=== PATIENT | female | born 1965 | race Caucasian/White ===

== ENCOUNTER 2023-11-05 12:38 | Inpatient (IN) | payer OTHER, SELFPAY ==
[2023-11-05] VITALS (7 sets, daily range): BP systolic 139–159; BP diastolic 63–98; PULSE 62–81; RESP 16–18; TEMP 36.6–37.3; O2SAT 95–100; BMI 24.0; BMI 23.6
--- NOTE | ~2023-11-05 | XR_ITS ---
EXAMINATION: XR HAND, RIGHT CLINICAL INFORMATION: Pain and swelling and redness. History of trauma. COMPARISON: None available. TECHNIQUE: PA, lateral, and oblique views of the right hand. FINDINGS: Alignment is anatomic. No displaced fracture. Joint spaces are maintained. Tiny periarticular calcifications are seen. No erosions. XR/XR hand RT min 3V IMPRESSION: No acute abnormality.
--- NOTE | 2023-11-05 12:45 | ED.EXTPRO ---
HPI - Extremity Problem General Chief complaint: Extremity Injury, Upper Stated complaint: R thumb pain red line traveling up arm Time Seen by Provider: 11/05/23 13:19 Source: patient Mode of arrival: ambulatory Limitations: no limitations History of Present Illness HPI Narrative: 58-year-old female with hypothyroidism presents to ED for red streak going up from l left arm going up to left bicep began yesterday. Patient had nail work done on her left thumb and has pain in the area and last night the redness started from thumb all way up to the arm. Patient denies any feel or chills. Patient denies any chest pain or recent trauma. Related Data Home Medications ?Medication ?Instructions ?Recorded ?Confirmed levothyroxine 75 mcg tablet 75 mcg PO DAILY 11/05/23 11/05/23 [id number] 1 tab PO DAILY 11/05/23 11/05/23 tablet (Multivitamin 50 Plus tablet) Allergies Allergy/AdvReac Type Severity Reaction Status Date / Time vancomycin Allergy Itching Verified 11/05/23 15:44 Review of Systems Review of Systems: Left arm redstreak Yes all other systems are reviewed and are negative [facility] Past Medical History Medical History (Updated 11/05/23 @ 23:07 by LILLY Bianchi) Hypothyroid Social History Social History Household Members: Family Housing: House Do you presently have visiting nurse or other home services: No Alcohol intake: current Alcohol intake frequency: 3 or more drinks per day Alcohol type: wine Patient Tobacco Use Status: Never used Tobacco Smoked in Last 30 Days: No Use of substances other than those prescribed or required for medical reasons: No Have you been hit, kicked, punched, or otherwise hurt by someone within the past year? If so, by whom?: No Do you feel safe in your current relationship?: Yes Is there a partner from a previous relationship who is making you feel unsafe now?: No Are you made to feel afraid or neglected: No Advance Directives: No Advance Directives Information Provided: Yes Do you have a plan to hurt others: No Plan Recently lost weight without trying: No How much weight loss: Not applicable Eating poorly because of decreased appetite: No Nutrition screen score: 0 Nutrition Risks: No Nutritional Risk Patient : No : No Poor oral hygiene: No Physical Exam Vital Signs: Vital Signs: Last Vital Signs Temp 97.8 F 11/05/23 20:42 Pulse 78 11/05/23 20:42 Resp 18 11/05/23 20:42 BP 139/92 H 11/05/23 20:42 Pulse Ox 95 11/05/23 20:42 O2 Del Method Room Air 11/05/23 20:42 BMI result Body Mass Index 24.0 Const: General: cooperative, healthy appearing, comfortable, no acute distress, well developed, alert, awake and Physically active Orientation/consciousness: oriented to person, oriented to place, oriented to time and patient oriented x3 HEENT: Head: Yes normal to inspection, Yes No palpable skull fracture present, Yes normocephalic, Yes atraumatic and No abrasion Eyes: General: appearance normal, both eyes and all related structures Neck: Neck: Yes normal visual inspection, Yes full ROM, Yes no lymphadenopathy, Yes no meningeal signs, No anterior neck swelling and No tender Chest: Chest palpation & inspection: normal inspection of the chest and normal palpation of entire chest wall Resp: Effort & Inspection: normal respiratory effort and able to speak in complete sentences Auscultation: clear to auscultation bilaterally Cardio: Jugular venous distension: no JVD Heart sounds: S1 normal heart sound present and S2 normal heart sound present GI: Inspection: Yes normal to inspection Palpation (GI): Soft to palpation, not firm, nontender, no guarding and not rigid : General: Yes no CVA tenderness Back/Spine/Pelvis: Back: no CVA tenderness and No back tenderness Skin: Other: Right lymphangitis General skin exam: no rashes or lesions noted, elasticity normal and turgor normal Neuro: General: oriented to person, oriented to place, oriented to time, patient oriented x3, gait normal, tone normal, moves all extremities, Normal light touch and pain sensation, no meningeal signs, no focal motor deficits, CN's II-XI intact bilaterally and normal sensation to monofilament Extrem: Other: vascular motor/neuro exam intact Right lower extremity. Near right nail cuticle erythema maybe slight early paronychia. Patient has fake nail acrylic, Psych: Appearance: grossly normal, well kempt and not disheveled Course Course Course Narrative: This is a Rapid Medical Examination (RME) performed by Ana Knott PA-C in triage. Full HPI, ROS, assessment and treatment plan per primary provider in the Main ED. 58 yo female presenting with painful, swollen right thumb after minor trauma 1.5 weeks ago and woke up today with red line traveling up her arm. No fever or chills. Not diabetic. Pain w/ ROM of the thumb. Exam w/ acrylic nails but visible base w/ probable paronychia and erythematous line to the middle upper arm c/w lymphangitis. Plan: lab workup, paronychia drainage Medications Administered Generic Name Dose Route Start Last Admin Trade Name Freq PRN Reason Stop Dose Admin Cefazolin Sodium 1 gm/ Sodium 50 mls @ 100 mls/hr 11/05/23 17:00 11/05/23 17:33 Chloride IV Infused Q8H RAJWINDER Infusion Sodium Chloride 3 ml 11/06/23 00:00 11/05/23 21:21 0.9 % Sodium Chloride Flush 3 Ml Syringe IVFLUSH 3 ml QSHIFT RAJWINDER Administration Discontinued Medications Generic Name Dose Route Start Last Admin Trade Name Freq PRN Reason Stop Dose Admin Diphenhydramine HCl 50 mg 11/05/23 15:43 11/05/23 15:49 Diphenhydramine Hcl 50 Mg/Ml Vial IVPUSH 11/05/23 15:44 50 mg ONCE ONE Administration Vancomycin HCl 1,500 mg/ 500 mls @ 333.333 mls/hr 11/05/23 13:21 11/05/23 15:15 Sodium Chloride IV 11/05/23 14:50 Infused ONCE ONE Infusion Methylprednisolone Sodium Succinate 125 mg 11/05/23 15:43 11/05/23 15:49 Methylprednisolone Sod Succ 125 Mg/2 Ml Vial IVPUSH 11/05/23 15:44 125 mg ONCE ONE Administration Medical Decision Making Medical Decision Making [facility] Narrative: 58-year-old female with right thumb pain now with red streaks going up to right upper biceps that occurred since yesterday. Patient states no fever or chills. Some for lymphangitis. IV antibiotics lactic blood culture ordered. X-ray ordered. Will contact hospitalist. 3:49pm: Case was discussed Dr. Cardona of hand surgery who recommends patient be admitted to hospitalist service. She recommends patient is thumb be placed in hot salt water to treat early paronychia. Case discussed with Dr. Zurita of hospitalist to be admitted for IV antibiotics. Patient given vancomycin. Patient completed vancomycin and then complaining of itchiness with red rash on scalp posterior neck so Benadryl and steriods was given. Differential Diagnosis Differential Diagnoses: The differential diagnosis associated with the presentation includes ( Cellulitis, osteomyelitis, paronychia,) Consult Healthcare Provider Management of the patient was discussed with: Hospitalist ( Dr. Tang) and Cash Controller ( Dr. Cardona) Lab Data MDM Lab Attestation statement: I reviewed the patient's lab results. 11/05/23 13:15 11/05/23 13:15 Labs: Lab Results 11/05/23 11/05/23 Range/Units 13:15 13:30 WBC 6.3 (4.8-10.8) X10*3/uL RBC 4.17 L (4.20-5.50) X10*6/uL Hgb 13.8 (12.0-16.0) g/dl Hct 39.4 (37.0-47.0) % MCV 94.5 (80.0-98.0) fL MCH 33.1 H (27.0-33.0) pg MCHC 35.0 (31.0-35.0) g/dl RDW 12.2 (11.0-16.0) % Plt Count 238 (160-400) X10*3/uL MPV 9.2 L (9.4-12.3) fL Immature Gran % (Auto) 0.2 (0.0-0.4) % Neut % (Auto) 64.2 (45-73) % Lymph % (Auto) 23.7 (20-40) % [place] % (Auto) 7.9 (2-11) % Eos % (Auto) 3.2 (0-4) % Baso % (Auto) 0.8 (0-2) % Lymph # (Auto) 1.5 (1.2-4.9) X10*3/uL [place] # (Auto) 0.5 (0.1-1.2) X10*3/uL Eos # (Auto) 0.2 (0.0-0.4) X10*3/uL Baso # (Auto) 0.1 (0.0-0.2) X10*3/uL Abs Immat Gran (auto) 0.01 (0.00-0.03) X10*3/uL Absolute Neuts (auto) 4.1 (2.0-8.3) x10*3/uL Absolute Nucleated RBC 0.000 (0.0-0.012) X10*3/uL Nucleated RBC % (auto) 0.0 (0.0-0.2) /100WBC ESR 1 (0-20) MM/HR PT 11.9 (11.1-13.3) SEC INR 1.0 (0.9-1.1) APTT 31.7 (26.0-36.8) SEC Sodium 140 (135-145) mmol/L Potassium 4.3 (3.3-5.1) mmol/L Chloride 103 (96-108) mmol/L Carbon Dioxide 27 (22-29) mmol/L Anion Gap 14 (12-20) BUN 20 H (9-16) mg/dL Creatinine 0.99 (0.5-1.4) mg/dL Estim Creat Clear Calc 53.5 Estimated GFR 58 Random Glucose 99 (60-115) mg/dL Lactic Acid 0.8 (0.5-2.0) mmol/L Calcium 10.1 (8.4-10.2) mg/dL C-Reactive Protein 0.12 (< or = 0.50) mg/dL Independent Interpretation I performed an independent interpretation of an: Plain X-Ray Radiology Impression Discussion of test interpretation with radiology: I have reviewed the radiologist's reading. Independent Historian Clinical information obtained from an independent historian. History obtained from or confirmed by: Other (patient) External Record Review External record reviewed: Other ( prior visits) Prescription Management I considered prescription management with: Antibiotic Critical Care Time Critical Care Time Critical Care Time: Yes Total Critical Care Time: 60 Attestation: history and physical exam positive for lymphaginitis. antiibotis ordered and contacted hand surgeon and hospitalists Discharge Plan Discharge Clinical Impression: Lymphangitis Patient Disposition: Admitted As Inpatient Interventions: Admission Worksheet (ED) Last Done: 11/05/23 19:30
[2023-11-05 13:20] LABS: MANUAL DIFF FLAG NO
[2023-11-05 13:22] LABS: Basophils Absolute Auto 0.1 X10*3/uL (0.0-0.2); Basophils Percent Auto 0.8 % (0-2); Eosinophils Absolute Auto 0.2 X10*3/uL (0.0-0.4); Eosinophils Percent Auto 3.2 % (0-4); Hematocrit 39.4 % (37.0-47.0); Hemoglobin 13.8 g/dl (12.0-16.0); Imm Gran Abs Auto 0.01 X10*3/uL (0.00-0.03); Imm Gran Pct Auto 0.2 % (0.0-0.4); Lymphocytes Absolute Auto 1.5 X10*3/uL (1.2-4.9); Lymphocytes Percent Auto 23.7 % (20-40); Mean Corpuscular Hemoglobin 33.1 pg (27.0-33.0); Mean Corpuscular Volume 94.5 fL (80.0-98.0); Mean Platelet Volume 9.2 fL (9.4-12.3); Monocytes Absolute Auto 0.5 X10*3/uL (0.1-1.2); Monocytes Percent Auto 7.9 % (2-11); Neutrophils Absolute Auto 4.1 x10*3/uL (2.0-8.3); Neutrophils Percent Auto 64.2 % (45-73); Platelet Count 238 X10*3/uL (160-400); Red Blood Count 4.17 X10*6/uL (4.20-5.50); Red Cell Distribution Width 12.2 % (11.0-16.0); White Blood Count 6.3 X10*3/uL (4.8-10.8)
[2023-11-05 13:34] LABS: Anion Gap 14 (12-20); Blood Urea Nitrogen 20 mg/dL (9-16); C Reactive Protein 0.12 mg/dL (< or = 0.50); Calcium 10.1 mg/dL (8.4-10.2); Carbon Dioxide 27 mmol/L (22-29); Chloride 103 mmol/L (96-108); Creatinine Clr Calc Pharmacy 53.5; Estimated Glomerular Filt Rate 58; Glucose Random 99 mg/dL (60-115); Potassium 4.3 mmol/L (3.3-5.1); Sodium 140 mmol/L (135-145)
[2023-11-05] MEDS: vancomycin HCL 1,500 MG in 0.9 % Sodium Chloride 500 ML 333.33 MG IV (13:41)
[2023-11-05 13:49] LABS: Lactic Acid 0.8 mmol/L (0.5-2.0)
[2023-11-05 13:56] LABS: Prothrombin Time 11.9 SEC (11.1-13.3)
[2023-11-05 13:59] LABS: Partial Thromboplastin Time 31.7 SEC (26.0-36.8)
[2023-11-05 14:03] LABS: Erythrocyte Sedimentation Rate 1 MM/HR (0-20)
--- NOTE | 2023-11-05 14:07 | PC.NURSE ---
patient awake and alert. skin pwd. resp even and non labored, speaking in full, clear sentences. reports ? of right thumb injury about a week ago, pain and swelling since. thumb is swollen, purulent fluid can be seen under skin at base of right thumb nail. patient now has red streak extending from right thumb up forearm.labs and blood cultures obtained, IV abt infusing as ordered.
--- NOTE | 2023-11-05 15:30 | PC.NURSE ---
upon completing vanco dose patient c/o itching behind ears and back of neck, redness noted. PA aware
--- NOTE | 2023-11-05 15:42 | PC.NURSE ---
soaking right thumb in warm salt water per PA.
[2023-11-05] MEDS: methylPREDNISolone Sod Succ 125 MG/2 ML VIAL IVPUSH (15:49)
[2023-11-05] MEDS: diphenhydrAMINE HCL 50 MG/ML VIAL IVPUSH (15:49)
--- NOTE | 2023-11-05 15:58 | PC.NURSE ---
patient reports feeling lightheaded after solumedrol and benadryl administrastions, VSS, PA aware.
--- NOTE | 2023-11-05 16:14 | P.HPHOSP_ITS ---
History of Present Illness Date of Service: 11/05/23 Chief Complaint: right thumb pain and redness 58F PMH hypothryoid presented with right thumb pain and redness. patient had nails done several days prior to presentation, then was doing rigourous yard work. afterwards starting have right thumb pain, swelling and erythema, now red streaks moving up hand and forearm to elbow. denies fever, chills. Review of Systems 2 Review of Systems: Yes all other systems are reviewed and are negative [facility] Medical History (Updated 11/05/23 @ 16:20 by Jonathan Tang MD) Hypothyroid Social History Alcohol intake: current Alcohol intake frequency: 3 or more drinks per day Alcohol type: wine Smoked in Last 30 Days: No Use of substances other than those prescribed or required for medical reasons: No Advance Directives: No Advance Directives Information Provided: Yes Meds Allergies Allergy/AdvReac Type Severity Reaction Status Date / Time vancomycin Allergy Itching Verified 11/05/23 15:44 Physical Exam 2 Vital Signs and Narrative: Vital Signs: Last Vital Signs Temp 98.6 F 11/05/23 15:48 Pulse 81 11/05/23 15:57 Resp 16 11/05/23 15:57 BP 147/96 H 11/05/23 15:57 Pulse Ox 100 11/05/23 15:57 O2 Del Method Room Air 11/05/23 15:57 BMI result Body Mass Index 24.0 General: AO X 3, no acute distress Resp: CTA bilateral, no accessory muscles used CVS: S1,S2,RRR GI: soft, non tender, non distended Neuro: motor grossly intact, alert Psych: appropriate affect, appropriate insight right thumb lymphangitic spread up to forearm (see pic) Results Labs 11/05/23 13:15 11/05/23 13:15 Labs: Laboratory Results - last 24 hr 11/05/23 11/05/23 13:15 13:30 MCV 94.5 MCH 33.1 H MCHC 35.0 RDW 12.2 Plt Count 238 MPV 9.2 L Immature Gran % (Auto) 0.2 Neut % (Auto) 64.2 Lymph % (Auto) 23.7 [place] % (Auto) 7.9 Eos % (Auto) 3.2 Baso % (Auto) 0.8 Lymph # (Auto) 1.5 [place] # (Auto) 0.5 Eos # (Auto) 0.2 Baso # (Auto) 0.1 Abs Immat Gran (auto) 0.01 Absolute Neuts (auto) 4.1 Absolute Nucleated RBC 0.000 Nucleated RBC % (auto) 0.0 ESR 1 PT 11.9 INR 1.0 APTT 31.7 Anion Gap 14 Estim Creat Clear Calc 53.5 Estimated GFR 58 Random Glucose 99 Lactic Acid 0.8 Calcium 10.1 C-Reactive Protein 0.12 Imaging Radiologist's Impressions: Impressions Hand X-Ray 11/05/23 13:09 IMPRESSION: No acute abnormality. Assessment and Plan (1) Cellulitis: Status: Acute Plan 58F PMH hypothryoid presented with right thumb cellulitis right thumb cellulitis with lymphangitic spread iv ancef, follow up cultures, monitor for progression/improvement hypothryoid synthroid dvt prophylaxis - lovenox full code patient with signifcnat lymphangitic spread of cellulitis, would require atleast 2 midnights inpatient to monitor for response to therapy and for iv abx for better bioavailability as she is at risk for further progression and sepsis Quality Stroke Does the patient have a stroke diagnosis?: No VTE Prior VTE?: No VTE Risk Level:: Medical - moderate - high VTE Device Contraindication: Treatment Not Indicated VTE Drug Contraindication: N/A - Med Ordered
--- NOTE | 2023-11-05 18:25 | PHA.MEDREC ---
Pharmacy Consult ? Medication Reconciliation Pharmacy has completed the medication reconciliation. Spoke to patient, she's only taking levothyroxine 75 mcg and multivitamin 50+.
--- NOTE | 2023-11-05 19:26 | PC.NURSE ---
this rn assumed care of pt, pt a&ox4, respirations even and unlabored. pt resting in stretcher, no acute distress noted. call bruner within reach.
[2023-11-05] MEDS: 0.9 % Sodium Chloride Flush 3 ML SYRINGE IVFLUSH (21:21)
[2023-11-06 03:23] VITALS: BP 121/78; PULSE 61; RESP 18; TEMP 36.9; O2SAT 97
[2023-11-06] MEDS: Levothyroxine Sodium 75 MCG TABLET PO (05:49)
[2023-11-06 07:38] VITALS: BP 135/85; PULSE 65; RESP 18; TEMP 36.3; O2SAT 97
[2023-11-06 08:31] LABS: Hematocrit 40.9 % (37.0-47.0); Mean Corpuscular HGB Conc 34.2 g/dl (31.0-35.0); Mean Corpuscular Hemoglobin 32.3 pg (27.0-33.0); Mean Corpuscular Volume 94.2 fL (80.0-98.0); Mean Platelet Volume 9.5 fL (9.4-12.3); Platelet Count 257 X10*3/uL (160-400); Red Blood Count 4.34 X10*6/uL (4.20-5.50); Red Cell Distribution Width 12.3 % (11.0-16.0); White Blood Count 7.7 X10*3/uL (4.8-10.8)
[2023-11-06 08:45] LABS: Anion Gap 13 (12-20); Blood Urea Nitrogen 14 mg/dL (9-16); Calcium 9.9 mg/dL (8.4-10.2); Carbon Dioxide 24 mmol/L (22-29); Chloride 104 mmol/L (96-108); Creatinine Clr Calc Pharmacy 77.9; Estimated Glomerular Filt Rate > 60; Glucose Fasting 95 mg/dL (60-99); Potassium 4.4 mmol/L (3.3-5.1); Sodium 137 mmol/L (135-145)
--- NOTE | 2023-11-06 09:04 | MHC.CM.PN ---
Patient lives in a home w/ and adult son. Functionally independent. Denies use of DME or services. PCP Marc Pyle NP Patient reports she has an HCP at home and her is listed as her HCA. Copy requested. DP: [place] home self care, likely today. Has her car in the lot and will drive home. CM will continue to follow.
[2023-11-06] MEDS: 0.9 % Sodium Chloride Flush 3 ML SYRINGE IVFLUSH (09:19)
[2023-11-06] MEDS: Enoxaparin Sodium 40 MG/0.4 ML SYRINGE SUBCUT (09:28)
[2023-11-06] MEDS: Multivitamin TABLET 1 TAB PO (09:28)
--- NOTE | 2023-11-06 10:19 | P.DS_ITS ---
DS: Providers Provider Date of Service: 11/06/23 Date of admission: 11/05/23 16:13 Primary care physician: Namita Pyle NP Consults: 11/05/23 20:53 Addiction Medicine Routine Consulting Provider: Addiction Covering Reason for consultation: 3 glasses of wine daily Consult to Wound Care Routine Reason for consultation: celluitis right 1st finger (thumb) DS: Diagnosis Discharge Diagnosis (1) Cellulitis: Status: Acute DS: Summary Hospital Course Hospital Course: from initial hpi: 58F PMH hypothryoid presented with right thumb pain and redness. patient had nails done several days prior to presentation, then was doing rigourous yard work. afterwards starting have right thumb pain, swelling and erythema, now red streaks moving up hand and forearm to elbow. denies fever, chills. hospital course: Patient was admitted for right thumb cellulitis with lymphangitic spread. She was treated with IV cefazolin. Her lymphangitis resolved dramatically, faster than expected. There were No signs of any lymphangitic spread by the next morning. She does still have some thumb erythema tenderness and swelling. Though no fluctuance or drainage. Plan is for discharge on p.o. Keflex for 7 more days. For hypothyroidism was continued on Synthroid. Time Attestation Discharge Coordination Time (in mins): 35 Quality: Safe Use of Opioids Does Pt have an Active Cancer Diagnosis on the Problem List?: No Quality: Stroke Does the patient have a stroke diagnosis?: No Physical Exam Vital Signs: Vital Signs: Last Vital Signs Temp 97.4 F 11/06/23 07:38 Pulse 65 11/06/23 07:38 Resp 18 11/06/23 07:38 BP 135/85 11/06/23 07:38 Pulse Ox 97 11/06/23 07:38 O2 Del Method Room Air 11/06/23 07:38 BMI result Body Mass Index 23.6 lymphangetic spread resolved some thumb swelling, erythema, tenderness, no fluctuance or drainage noted DS: Data Data Completed and Pending Labs on day of discharge: Laboratory Results - last 24 hr 11/05/23 11/05/23 11/06/23 13:15 13:30 08:09 WBC 6.3 7.7 RBC 4.17 L 4.34 Hgb 13.8 14.0 Hct 39.4 40.9 MCV 94.5 94.2 MCH 33.1 H 32.3 MCHC 35.0 34.2 RDW 12.2 12.3 Plt Count 238 257 MPV 9.2 L 9.5 Immature Gran % (Auto) 0.2 Neut % (Auto) 64.2 Lymph % (Auto) 23.7 [place] % (Auto) 7.9 Eos % (Auto) 3.2 Baso % (Auto) 0.8 Lymph # (Auto) 1.5 [place] # (Auto) 0.5 Eos # (Auto) 0.2 Baso # (Auto) 0.1 Abs Immat Gran (auto) 0.01 Absolute Neuts (auto) 4.1 Absolute Nucleated RBC 0.000 0.000 Nucleated RBC % (auto) 0.0 0.0 ESR 1 PT 11.9 INR 1.0 APTT 31.7 Sodium 140 137 Potassium 4.3 4.4 Chloride 103 104 Carbon Dioxide 27 24 Anion Gap 14 13 BUN 20 H 14 Creatinine 0.99 0.68 Estim Creat Clear Calc 53.5 77.9 Estimated GFR 58 > 60 Random Glucose 99 Fasting Glucose 95 Lactic Acid 0.8 Calcium 10.1 9.9 C-Reactive Protein 0.12 Discharge Plan Discharge Anticipated Discharge Date/Time: 11/06/23 10:16 Patient Disposition: Home, Self-Care Discharge Diagnosis: cellulitis, lymphangitis Referrals: Namita Pyle NP [Primary Care Provider] - 1 Week Discharge Medications: New cephalexin 500 mg capsule 500 mg PO Q12H Qty: 14 0RF Continued levothyroxine 75 mcg tablet 75 mcg PO DAILY Multivitamin 50 Plus Tablet 1 tab PO DAILY Discharge Orders: Discharge Order (Routine); Ordered 11/06/23 Ordered By: Jonathan Tang Diet: Advance to usual diet Activity on Discharge: As tolerated Stand Alone Forms: Patient Portal Discharge page Print Language: Yoruba Care Plan Goals: recovery Health Concerns: cellulitis Plan of Treatment: keflex for 7 days, monitor for improvement Assessment: see above
--- NOTE | 2023-11-06 10:37 | MHC.RECOVRN ---
AUDIT-C Brief Intervention Pt had positive screen for unhealthy alcohol use on admission. Pt declined to meet with [facility] to discuss alcohol use and resources.
== END 2023-11-06 11:20 | disposition home or self-care (01) | DRG 383 ==
LOC: HO.ED 13:31 → HO.EDOVER 16:16 → HO.S3 19:25
PROVIDERS: Physician Assistant; Admitting Provider Internal Medicine; Emergency Provider Emergency Medicine; PCP Nurse Practitioner Adult Health; Visit Provider Internal Medicine
DX: L03.011 Cellulitis of right finger (principal); E03.9 Hypothyroidism, unspecified; Z79.890 Hormone replacement therapy
CPT/HCPCS: 36415; 73130; 80048; 83605; 85025; 85027; 85610; 85652; 85730; 86140; 87040; 99221; 99285; J0690; J1200; J1650; J2919; J3371

== ENCOUNTER → 2023-11-05 16:13 | Outpatient (BNV) | payer OTHER, SELFPAY | PROVIDERS: Admitting Provider Internal Medicine; Emergency Provider Emergency Medicine; PCP Nurse Practitioner Adult Health; Visit Provider Internal Medicine | DX: L03.011 Cellulitis of right finger (principal) | CPT/HCPCS: 99222; 99239 ==